=== PATIENT | male | born 1995 | race Caucasian/White ===

== ENCOUNTER → 2023-02-18 | Outpatient (REF) | payer OTHER | LOC: M SMT 13:16 | PROVIDERS: ATTEND Urology | DX: Z30.2 Encounter for sterilization (principal) ==

== ENCOUNTER → 2023-04-15 | Outpatient (REF) | payer OTHER ==
[2023-04-15 10:16] LABS: SEMEN APPEARANCE OPAQUE (OPAQUE); SEMEN VISCOSITY LIQUID (LIQUID); SEMEN VOLUME 3.8 ml (2.0-5.0); SEMEN pH 8.5 (7.0-8.0)
[2023-04-15 10:17] LABS: WBC CONCENTRATION >1 M/ml (<=1 M/ml)
== END ==
LOC: M LAB REF 08:34
PROVIDERS: ATTEND Urology
DX: Z30.8 Encounter for other contraceptive management (principal)